=== PATIENT | female | born 1990 | race African-American/Black ===

== ENCOUNTER 2017-04-18 21:48 | Emergency (ER) | payer MEDICAID ==
[~2017-04-18] VITALS: Ht 162.6 cm; Wt 82.5 kg
[2017-04-19 01:24] LABS: BASOPHILS % 0.2 % (0.0-2.0); EOSINOPHILS % 1.5 % (0.0-5.0); HEMATOCRIT. 36.2 % (36.0-48.0); HEMOGLOBIN. 12.1 g/dL (12.0-16.0); LYMPHOCYTES % 28.5 % (20.0-50.0); MEAN CORPUSCULAR HGB CONC 33.4 g/dL (31.0-37.0); MEAN CORPUSCULAR VOLUME 83.8 fL (81.0-99.0); MEAN PLATELET VOLUME 8.9 fl (7.4-10.4); MONOCYTES % 6.8 % (2.0-8.0); PLATELET 206 x1000/uL (130-400); RED BLOOD CELL COUNT 4.32 mill/uL (4.2-5.4); RED CELL DISTRIBUTION WIDTH 13.5 % (11.6-14.6); WHITE BLOOD COUNT 8.2 x1000/uL (4.5-11.0)
[2017-04-19 01:33] LABS: PROTHROMBIN TIME 10.5 sec
[2017-04-19 01:38] LABS: CHLORIDE 107 mEq/L (98-107); INDEX HEMOLYSI 1 (1-3); INDEX ICTERIC 1 (1-4); INDEX LIPEMIC 1 (1-3)
[2017-04-19 01:49] LABS: ALANINE AMINOTRANSFERASE 25 IU/L (13-61); ALBUMIN 3.9 g/dL (3.4-5.0); ANION GAP 11; B-HCG QUANTITATIVE 53 mIU/mL (<3); CALCIUM 8.2 mg/dL (8.5-10.1); CARBON DIOXIDE 27 mEq/L (21-32); eGFR > 60 mL/min (>60)
[2017-04-19 01:54] LABS: UREA NITROGEN BLOOD 4 mg/dL (7-21)
[2017-04-19 02:25] VITALS: BP 109/59
[2017-04-19 04:16] LABS: CLARITY URINE CLEAR (CLEAR); COLOR URINE YELLOW (YELLOW); GLUCOSE URINE NEGATIVE (NEGATIVE); KETONES URINE 3+ (NEGATIVE); LEUKOCYTE ESTERASE URINE TRACE (NEGATIVE); NITRITE URINE NEGATIVE (NEGATIVE); OCCULT BLOOD URINE 1+ (NEGATIVE); PH URINE 8.5 (4.5-8.0); PROTEIN URINE NEGATIVE (NEGATIVE)
[2017-04-19 04:52] LABS: BACTERIA URINE TRACE; RBC URINE 0-2 /hpf (0-2); SQUAMOUS EPITHELIAL CELL URINE FEW /lpf (RARE/1+); WBC URINE 0-2 /hpf (0-2)
== END 2017-04-19 05:11 | disposition home or self-care (01) ==
LOC: ER 21:48
DX: N93.9 Abnormal uterine and vaginal bleeding, unspecified (principal); Z98.890 Other specified postprocedural states
CPT/HCPCS: 36415; 76830; 76856; 80053; 81001; 84702; 85025; 85610; 86850; 86900; 86901; 99285; Z7610

== ENCOUNTER 2021-05-17 16:08 | Observation (INO) | payer MEDICAID ==
[~2021-05-17] VITALS: Ht 160 cm; Wt 82.6 kg
[2021-05-17] MEDS ORDERED: PNV1TABL76 MT (16:55)
[2021-05-17 17:36] LABS: CLARITY URINE CLEAR (CLEAR); COLOR URINE YELLOW (YELLOW); KETONES URINE NEGATIVE (NEGATIVE); LEUKOCYTE ESTERASE URINE 1+ (NEGATIVE); NITRITE URINE NEGATIVE (NEGATIVE); OCCULT BLOOD URINE NEGATIVE (NEGATIVE); PROTEIN URINE NEGATIVE (NEGATIVE); SPECIFIC GRAVITY URINE 1.005 (1.005-1.030); UROBILINOGEN URINE 0.2 E.U./dL (0.2-1.0)
== END 2021-05-17 18:25 | disposition home or self-care (01) ==
LOC: 8 EST A/PP 16:08
PROVIDERS: ADMIT Obstetrics & Gynecology; ATTEND Obstetrics & Gynecology
DX: O26.893 Other specified pregnancy related conditions, third trimester (principal); R10.9 Unspecified abdominal pain; Z3A.28 28 weeks gestation of pregnancy
CPT/HCPCS: 81003; G0378; 99281

== ENCOUNTER 2021-08-04 07:59 | Inpatient (IN) | payer MEDICAID ==
[~2021-08-04] VITALS: Ht 160 cm; Wt 85.7 kg
[~2021-08-04 07:59] MED LIST: PNV1TABL76 MT
[2021-08-04] MEDS ORDERED: DEXT 5%/LR + PITOCIN 20UNITS/L 1,000 ML IV SCH ×2 (09:00→13:30)
[2021-08-04] MEDS ORDERED: METHYLERGONOVINE MALEATE 0.2 MG/ML IM PRN ×2 (09:00→13:30)
[2021-08-04] MEDS ORDERED: NALOXONE HCL 0.4 MG/ML 1ML VIAL IM PRN (09:00)
[2021-08-04] MEDS: LACTATED RINGERS 1,000 ML IV SCH ×2 (09:40→09:43)
[2021-08-04 09:44] LABS: CLARITY URINE CLEAR (CLEAR); COLOR URINE DARK YELLOW (YELLOW); KETONES URINE TRACE (NEGATIVE); LEUKOCYTE ESTERASE URINE TRACE (NEGATIVE); NITRITE URINE NEGATIVE (NEGATIVE); OCCULT BLOOD URINE NEGATIVE (NEGATIVE); PROTEIN URINE 1+ (NEGATIVE); SPECIFIC GRAVITY URINE 1.023 (1.005-1.030)
[2021-08-04 09:49] LABS: BASOPHILS % 0.2 % (0.0-2.0); EOSINOPHILS % 0.4 % (0.0-5.0); HEMATOCRIT. 38.7 % (36.0-48.0); HEMOGLOBIN. 13.4 g/dL (12.0-16.0); MEAN CORPUSCULAR HEMOGLOBIN 28.9 pg (28.0-32.0); MEAN CORPUSCULAR VOLUME 83.1 fL (81.0-99.0); MEAN PLATELET VOLUME 9.3 fl (7.4-10.4); MONOCYTES % 5.1 % (2.0-8.0); NEUTROPHILS % 77.3 % (40.0-76.0); PLATELET 201 x1000/uL (130-400); RED BLOOD CELL COUNT 4.65 mill/uL (4.2-5.4); RED CELL DISTRIBUTION WIDTH 13.7 % (11.6-14.6)
[2021-08-04 10:12] LABS: *AMPHETAMINES SCREEN URINE NEGATIVE (NEGATIVE); *BARBITURATES SCREEN URINE NEGATIVE (NEGATIVE); *BENZODIAZEPINES SCREEN URINE NEGATIVE (NEGATIVE); *COCAINE SCREEN URINE NEGATIVE (NEGATIVE); METHADONE URINE SCREEN NEGATIVE (NEGATIVE); OPIATES URINE SCREEN NEGATIVE (NEGATIVE)
[2021-08-04 10:13] LABS: CANNABINOID URINE SCREEN NEGATIVE (NEGATIVE); PHENCYCLIDINE URINE SCREEN NEGATIVE (NEGATIVE)
[2021-08-04] MEDS ORDERED: MORPHINE SULFATE/PF 1MG/ML 10ML AMP ONE (10:25)
[2021-08-04 12:02] LABS: HEPATITIS B SURFACE ANTIGEN NEGATIVE
[2021-08-04] MEDS ORDERED: OXYTOCIN 10 UNITS/ML 1ML ONE (12:03)
[2021-08-04] MEDS ORDERED: EPHEDRINE SULFATE 50MG/ML VIAL ONE (12:17)
[2021-08-04] MEDS ORDERED: ONDANSETRON HCL 4MG/2ML INJ ONE (12:17)
[2021-08-04] MEDS ORDERED: METOCLOPRAMIDE HCL 10MG/2ML VIAL ONE (12:17)
[2021-08-04] MEDS ORDERED: KETOROLAC 60MG/2ML VIAL IM ONE ×2 (12:18→12:19)
[2021-08-04] MEDS ORDERED: DEXAMETHASONE 4MG/ML 1ML VIAL ONE (12:18)
[2021-08-04] MEDS ORDERED: CEFAZOLIN SODIUM 1000MG/VIAL ONE (12:18)
[2021-08-04] MEDS ORDERED: FENTANYL CITRATE/PF 50MCG/ML 2ML VIAL ONE (12:39)
[2021-08-04] MEDS ORDERED: MEPERIDINE HCL/PF 25MG/ML CPJ IV PRN (12:45)
[2021-08-04] MEDS ORDERED: FENTANYL CITRATE/PF 50MCG/ML 2ML VIAL IV PRN (12:45)
[2021-08-04] MEDS ORDERED: MORPHINE SULFATE 2 MG/ML CPJ (NOT FOR IM USE) IV PRN ×2 (12:45)
[2021-08-04] MEDS ORDERED: ACETAMINOPHEN WITH CODEINE 300/30MG TABLET PO PRN (13:30)
[2021-08-04] MEDS ORDERED: RHO(D) IMMUNE GLOBULIN 300 MCG/SYR IM PRN (13:30)
[2021-08-04] MEDS ORDERED: DIPHENHYDRAMINE 25MG CAPSULE PO PRN (13:30)
[2021-08-04] MEDS ORDERED: LANOLIN OINT 7GM TUBE TOP PRN (13:30)
[2021-08-04 15:00] VITALS: BP 110/53
[2021-08-04 16:33] VITALS: BP 120/52
[2021-08-04 19:30] VITALS: BP 111/57
[2021-08-04] MEDS: DOCUSATE SODIUM 100MG CAPSULE PO SCH (21:07)
[2021-08-04 21:45] LABS: INR 0.9; PARTIAL THROMBOPLASTIN TIME 30.7 sec (23.4-31.0); PROTHROMBIN TIME 10.1 sec (9.6-11.0)
[2021-08-05 04:00] VITALS: BP 104/47
[2021-08-05] MEDS: ACETAMINOPHEN WITH CODEINE 300/30MG TABLET PO PRN ×3 (04:09→21:22)
[2021-08-05] MEDS: LACTATED RINGERS 1,000 ML IV SCH (05:15)
[2021-08-05 08:00] VITALS: BP 96/54
[2021-08-05] MEDS: PRENATAL VIT/FE FUMARATE/FA TABLET PO SCH (08:37)
[2021-08-05 09:20] LABS: BASOPHILS % 0.2 % (0.0-2.0); EOSINOPHILS % 0.1 % (0.0-5.0); HEMATOCRIT. 34.4 % (36.0-48.0); HEMOGLOBIN. 11.4 g/dL (12.0-16.0); LYMPHOCYTES % 16.2 % (20.0-50.0); MEAN CORPUSCULAR HEMOGLOBIN 28.7 pg (28.0-32.0); MEAN CORPUSCULAR VOLUME 86.5 fL (81.0-99.0); MEAN PLATELET VOLUME 9.5 fl (7.4-10.4); MONOCYTES % 6.9 % (2.0-8.0); NEUTROPHILS % 76.6 % (40.0-76.0); PLATELET 190 x1000/uL (130-400); RED BLOOD CELL COUNT 3.98 mill/uL (4.2-5.4); RED CELL DISTRIBUTION WIDTH 13.9 % (11.6-14.6)
[2021-08-05 16:15] VITALS: BP 94/49
[2021-08-05 19:30] VITALS: BP 93/54
[2021-08-05 21:22] VITALS: BP 93/49
[2021-08-05] MEDS: IBUPROFEN 400MG TABLET PO PRN (21:44)
[2021-08-05] MEDS: DOCUSATE SODIUM 100MG CAPSULE PO SCH (21:44)
[2021-08-06 04:00] VITALS: BP 103/57
[2021-08-06] MEDS: IBUPROFEN 400MG TABLET PO PRN ×3 (04:17→17:49)
[2021-08-06 08:00] VITALS: BP 106/62
[2021-08-06] MEDS: PRENATAL VIT/FE FUMARATE/FA TABLET PO SCH (13:02)
[2021-08-06 15:00] VITALS: BP 103/57
[2021-08-06 20:00] VITALS: BP 118/67
[2021-08-06] MEDS: DOCUSATE SODIUM 100MG CAPSULE PO SCH (22:16)
[2021-08-07] MEDS: IBUPROFEN 400MG TABLET PO PRN ×2 (00:01→08:22)
[2021-08-07 04:00] VITALS: BP 98/55
[2021-08-07] MEDS ORDERED: BISACODYL 5MG TABLET PO PRN (08:00)
[2021-08-07] MEDS: PRENATAL VIT/FE FUMARATE/FA TABLET PO SCH (08:22)
[2021-08-07 10:00] VITALS: BP 105/60
== END 2021-08-07 11:30 | disposition home or self-care (01) | DRG 540 ==
LOC: INTOOBSV 07:59 → OBSVTOIN 07:59 → 8 EST LDRP 07:59 → 8EST 14:42
PROVIDERS: ADMIT Obstetrics & Gynecology; ATTEND Obstetrics & Gynecology
PROC: 10D00Z1 Extraction of Products of Conception, Low, Open Approach (ICD-10-PCS; principal; 2021-08-04)
DX: O34.211 Maternal care for low transverse scar from previous cesarean delivery (principal); D62 Acute posthemorrhagic anemia; O99.03 Anemia complicating the puerperium; Z20.822 Contact with and (suspected) exposure to COVID-19; Z37.0 Single live birth; Z3A.39 39 weeks gestation of pregnancy
CPT/HCPCS: 36415; 80305; 81003; 85025; 86592; 86703; 86762; 86850; 86900; 87340; 87426; 88307; 99281; J0690; J1100; J1885; J2274; J2405; J2590; J2765; J3010; J3490; J7120; A4315

== ENCOUNTER 2022-04-29 10:18 | Emergency (ER) | payer MEDICAID ==
[~2022-04-29] VITALS: Ht 160 cm; Wt 78.0 kg
[2022-04-29] MEDS ORDERED: LIDO700A30 TP (16:57)
[2022-04-29] MEDS ORDERED: CYCL10TA21 MT (16:57)
[2022-04-29] MEDS ORDERED: NAP5EC MT (16:57)
[2022-04-29] MEDS ORDERED: CYCLOBENZAPRINE 10MG TABLET PO ONE (17:00)
[2022-04-29] MEDS ORDERED: KETOROLAC 60MG/2ML VIAL IM ONE (17:00)
[2022-04-29] MEDS: LIDOCAINE 5% PATCH TOP SCH ×2 (17:08→17:10)
[2022-04-29 17:10] VITALS: BP 123/80
== END 2022-04-29 17:39 | disposition home or self-care (01) ==
LOC: ER 10:39
DX: S13.8XXA Sprain of joints and ligaments of other parts of neck, initial encounter (principal); Z98.890 Other specified postprocedural states; V43.62XA Car passenger injured in collision with other type car in traffic accident, initial encounter; Y93.89 Activity, other specified; Y92.488 Other paved roadways as the place of occurrence of the external cause
CPT/HCPCS: 96372; 99283; J1885

== ENCOUNTER 2023-06-01 13:55 | Emergency (ER) | payer MEDICAID ==
[~2023-06-01] VITALS: Ht 167.6 cm; Wt 82.0 kg
[~2023-06-01 13:55] MED LIST changes: +CYCL10TA21 MT; +LIDO700A30 TP; +NAP5EC MT
[2023-06-01 13:58] VITALS: BP 118/82; TEMP 98.7; O2SAT 100
[2023-06-01 14:01] VITALS: PULSE 99; RESP 16
[2023-06-01 15:21] LABS: CLARITY URINE CLOUDY (CLEAR); COLOR URINE YELLOW (YELLOW); GLUCOSE URINE NEGATIVE (NEGATIVE); KETONES URINE 2+ (NEGATIVE); LEUKOCYTE ESTERASE URINE 1+ (NEGATIVE); NITRITE URINE POSITIVE (NEGATIVE); OCCULT BLOOD URINE 3+ (NEGATIVE); PROTEIN URINE 1+ (NEGATIVE); SPECIFIC GRAVITY URINE 1.018 (1.005-1.030)
[2023-06-01 16:23] LABS: SQUAMOUS EPITHELIAL CELL URINE 2+ /lpf (RARE/1+)
[2023-06-01 16:25] LABS: BACTERIA URINE 4+; RBC URINE 0-2 /hpf (0-2)
[2023-06-01 16:42] LABS: BASOPHILS % 0.4 % (0.0-2.0); EOSINOPHILS % 2.1 % (0.0-5.0); HEMATOCRIT. 38.5 % (36.0-48.0); HEMOGLOBIN. 12.8 g/dL (12.0-16.0); LYMPHOCYTES % 17.6 % (20.0-50.0); MEAN CORPUSCULAR HEMOGLOBIN 29.1 pg (28.0-32.0); MEAN CORPUSCULAR HGB CONC 33.3 g/dL (31.0-37.0); MEAN CORPUSCULAR VOLUME 87.6 fL (81.0-99.0); MEAN PLATELET VOLUME 8.9 fl (7.4-10.4); MONOCYTES % 6.7 % (2.0-8.0); NEUTROPHILS % 73.2 % (40.0-76.0); PLATELET 262 x1000/uL (130-400); RED BLOOD CELL COUNT 4.39 mill/uL (4.2-5.4); RED CELL DISTRIBUTION WIDTH 14.7 % (11.6-14.6); WHITE BLOOD COUNT 6.8 x1000/uL (4.5-11.0)
[2023-06-01 16:51] LABS: CHLORIDE 107 mEq/L (98-107); INDEX HEMOLYSI 1 (1-3); INDEX ICTERIC 1 (1-4); INDEX LIPEMIC 1 (1-3); POTASSIUM 3.6 mEq/L (3.5-5.1); SODIUM 135 mEq/L (136-145)
[2023-06-01 16:58] LABS: ALBUMIN 3.8 g/dL (3.4-5.0); CARBON DIOXIDE 25 mEq/L (21-32); GLUCOSE 106 mg/dL (70-105); UREA NITROGEN BLOOD 6 mg/dL (7-21)
[2023-06-01 16:59] LABS: ALANINE AMINOTRANSFERASE 35 IU/L (13-61); ASPARTATE AMINOTRANSFERASE 53 IU/L (15-37); CREATININE 0.6 mg/dL (0.6-1.3)
[2023-06-01 17:03] LABS: B-HCG QUANTITATIVE 243 mIU/mL (<3); BILIRUBIN TOTAL 0.7 mg/dL (0.1-1.0); PROTEIN TOTAL 7.6 g/dL (6.0-8.3)
[2023-06-01] MEDS ORDERED: CEPH500C2 MT (17:52)
== END 2023-06-01 18:18 | disposition home or self-care (01) ==
LOC: ER 14:06
DX: O46.91 Antepartum hemorrhage, unspecified, first trimester (principal); O26.891 Other specified pregnancy related conditions, first trimester; R10.2 Pelvic and perineal pain; Z3A.01 Less than 8 weeks gestation of pregnancy
CPT/HCPCS: 36415; 76801; 80053; 81003; 81025; 84702; 85025; 86850; 86900; 99284

== ENCOUNTER 2023-06-04 08:55 | Emergency (ER) | payer MEDICAID ==
[~2023-06-04] VITALS: Ht 160 cm; Wt 82.0 kg
[~2023-06-04 08:55] MED LIST changes: +CEPH500C2 MT
[2023-06-04 09:04] VITALS: BP 125/87; PULSE 82; RESP 20; TEMP 98.3; O2SAT 100
[2023-06-04 10:38] LABS: CLARITY URINE CLEAR (CLEAR); COLOR URINE YELLOW (YELLOW); KETONES URINE NEGATIVE (NEGATIVE); LEUKOCYTE ESTERASE URINE NEGATIVE (NEGATIVE); NITRITE URINE NEGATIVE (NEGATIVE); OCCULT BLOOD URINE 2+ (NEGATIVE); PH URINE 6.5 (4.5-8.0); PROTEIN URINE NEGATIVE (NEGATIVE); SPECIFIC GRAVITY URINE 1.005 (1.005-1.030); UROBILINOGEN URINE 0.2 E.U./dL (0.2-1.0)
== END 2023-06-04 10:42 | disposition home or self-care (01) ==
LOC: ER 08:55
DX: O03.9 Complete or unspecified spontaneous abortion without complication (principal); Z3A.01 Less than 8 weeks gestation of pregnancy; Z98.890 Other specified postprocedural states; Z79.899 Other long term (current) drug therapy
CPT/HCPCS: 36415; 81003; 81025; 84702; 99283

== ENCOUNTER 2023-08-07 20:40 | Emergency (ER) | payer MEDICAID ==
[~2023-08-07] VITALS: Ht 160 cm; Wt 72.0 kg
[2023-08-07] MEDS ORDERED: LIDOCAINE HCL/EPINEPHRINE 1%-EPI 1:100,000 20 ML VIAL INFIL ONE (20:45)
[2023-08-07] MEDS ORDERED: TETANUS, DIPHTHERIA, PERTUSSIS VAC/PF 0.5ML (>10YR OLD) IM ONE (20:45)
[2023-08-07] MEDS ORDERED: CEFAZOLIN 1000MG PREMIX 50 ML IV ONE (21:30)
[2023-08-07 21:59] LABS: BASOPHILS % 0.5 % (0.0-2.0); EOSINOPHILS % 1.3 % (0.0-5.0); HEMATOCRIT. 37.6 % (36.0-48.0); HEMOGLOBIN. 12.6 g/dL (12.0-16.0); LYMPHOCYTES % 50.4 % (20.0-50.0); MEAN CORPUSCULAR HGB CONC 33.7 g/dL (31.0-37.0); MEAN CORPUSCULAR VOLUME 86.2 fL (81.0-99.0); MEAN PLATELET VOLUME 9.4 fl (7.4-10.4); MONOCYTES % 4.6 % (2.0-8.0); NEUTROPHILS % 43.2 % (40.0-76.0); PLATELET 249 x1000/uL (130-400); RED BLOOD CELL COUNT 4.36 mill/uL (4.2-5.4); RED CELL DISTRIBUTION WIDTH 13.9 % (11.6-14.6)
[2023-08-07 22:04] VITALS: BP 107/62; PULSE 107; RESP 20; TEMP 98.2; O2SAT 99
[2023-08-07 22:18] LABS: INR 0.9
[2023-08-07 22:19] LABS: INDEX HEMOLYSI 3 (1-3); INDEX ICTERIC 1 (1-4); INDEX LIPEMIC 1 (1-3)
[2023-08-07 22:26] LABS: BILIRUBIN TOTAL 0.2 mg/dL (0.1-1.0); PROTEIN TOTAL 7.5 g/dL (6.0-8.3)
[2023-08-07 22:42] LABS: ALANINE AMINOTRANSFERASE 25 IU/L (13-61); ALBUMIN 3.7 g/dL (3.4-5.0); ASPARTATE AMINOTRANSFERASE 29 IU/L (15-37); CALCIUM 8.5 mg/dL (8.5-10.1); CARBON DIOXIDE 22 mEq/L (21-32); CHLORIDE 112 mEq/L (98-107); CREATININE 0.9 mg/dL (0.6-1.3); GLUCOSE 167 mg/dL (70-105); SODIUM 143 mEq/L (136-145); UREA NITROGEN BLOOD 9 mg/dL (7-21)
[2023-08-07] MEDS ORDERED: SODIUM CHLORIDE 0.9% 1,000 ML IV ONE (22:45)
[2023-08-07 23:12] LABS: HEMATOCRIT 33.7 % (36.0-48.0); HEMOGLOBIN 10.9 g/dL (12.0-16.0)
[2023-08-08] MEDS ORDERED: ACET-2708 MT (00:08)
== END 2023-08-08 00:50 | disposition home or self-care (01) ==
LOC: ER 22:05 → CANBEDREQ 08-08 19:40
DX: S51.811A Laceration without foreign body of right forearm, initial encounter (principal); Z79.899 Other long term (current) drug therapy; Z23 Encounter for immunization; W01.110A Fall on same level from slipping, tripping and stumbling with subsequent striking against sharp glass, initial encounter; Y93.89 Activity, other specified; Y92.89 Other specified places as the place of occurrence of the external cause; Y99.8 Other external cause status
CPT/HCPCS: 80053; 85014; 85018; 85025; 85610; 36415; 73090; 90715; 12002; 90471; 96361; 96365; 99284; J0690; J3490; J7030; Z7610

== ENCOUNTER 2024-07-21 09:23 | Emergency (ER) | payer MEDICAID ==
[~2024-07-21] VITALS: Ht 170.2 cm; Wt 81.0 kg
[~2024-07-21 09:23] MED LIST changes: +ACET-2708 MT
[2024-07-21 09:29] VITALS: O2SAT 99
[2024-07-21] MEDS: IBUPROFEN 600MG TABLET PO ONE (10:23)
[2024-07-21 11:03] VITALS: BP 128/78; PULSE 79; RESP 19; TEMP 36.78072; O2SAT 100
== END 2024-07-21 11:04 | disposition home or self-care (01) ==
LOC: ER 09:23
DX: R07.9 Chest pain, unspecified (principal); Z98.890 Other specified postprocedural states; Z79.899 Other long term (current) drug therapy
CPT/HCPCS: 71045; 93005; 99283

== ENCOUNTER 2025-02-08 23:42 | Emergency (ER) | payer MEDICAID ==
[~2025-02-08] VITALS: Ht 160 cm; Wt 78.0 kg
[~2025-02-08 23:42] MED LIST changes: -NAP5EC MT; +NAPR-1495 MT
[2025-02-09 00:21] VITALS: O2SAT 100
[2025-02-09 02:09] LABS: BASOPHILS % 0.4 % (0.0-2.0); EOSINOPHILS % 2.5 % (0.0-5.0); HEMATOCRIT. 39.3 % (36.0-48.0); HEMOGLOBIN. 12.9 g/dL (12.0-16.0); LYMPHOCYTES % 27.3 % (20.0-50.0); MEAN CORPUSCULAR HEMOGLOBIN 27.9 pg (28.0-32.0); MEAN CORPUSCULAR HGB CONC 32.9 g/dL (31.0-37.0); MEAN CORPUSCULAR VOLUME 84.8 fL (81.0-99.0); MEAN PLATELET VOLUME 9.3 fl (7.4-10.4); MONOCYTES % 5.5 % (2.0-8.0); NEUTROPHILS % 64.3 % (40.0-76.0); PLATELET 248 x1000/uL (130-400); RED BLOOD CELL COUNT 4.63 mill/uL (4.2-5.4); RED CELL DISTRIBUTION WIDTH 13.7 % (11.6-14.6); WHITE BLOOD COUNT 8.2 x1000/uL (4.5-11.0)
[2025-02-09 02:17] LABS: CARBON DIOXIDE 28 mEq/L (21-32); CHLORIDE 102 mEq/L (98-107); POTASSIUM 3.8 mEq/L (3.5-5.1); SODIUM 139 mEq/L (136-145)
[2025-02-09 02:18] LABS: CALCIUM 9.7 mg/dL (8.7-10.4)
[2025-02-09 02:22] LABS: CREATININE 0.7 mg/dL (0.6-1.0)
[2025-02-09 02:23] LABS: GLUCOSE 66 mg/dL (70-105); UREA NITROGEN BLOOD 6 mg/dL (9-23)
[2025-02-09 02:24] LABS: ALANINE AMINOTRANSFERASE 9 IU/L (10-49); ALBUMIN 4.3 g/dL (3.2-4.8); ASPARTATE AMINOTRANSFERASE 17 IU/L (<34)
[2025-02-09 02:25] LABS: BILIRUBIN TOTAL 0.5 mg/dL (0.1-1.0); PROTEIN TOTAL 7.4 g/dL (6.0-8.3)
[2025-02-09 02:32] LABS: HCG SCREEN NEGATIVE; TROPONIN I HIGH SENSITIVITY < 4 ng/L (3.0-34)
[2025-02-09] MEDS ORDERED: NAPR-1176 MT (04:44)
[2025-02-09 05:37] LABS: TROPONIN I HIGH SENSITIVITY < 4 ng/L (3.0-34)
[2025-02-09 05:45] VITALS: BP 117/79; PULSE 70; RESP 19; TEMP 36.7; O2SAT 100
== END 2025-02-09 05:47 | disposition home or self-care (01) ==
LOC: ER 23:42
DX: R07.89 Other chest pain (principal); Z79.1 Long term (current) use of non-steroidal anti-inflammatories (NSAID); Z98.890 Other specified postprocedural states
CPT/HCPCS: 36415; 71045; 80053; 83880; 84484; 84703; 85025; 93005; 99285